=== PATIENT | female | born 1975 | race Caucasian/White ===

== ENCOUNTER → 2016-10-05 | Outpatient (CLI) | payer OTHER | LOC: RAD 07:27 | PROVIDERS: ATTEND Family Medicine | DX: R10.13 Epigastric pain (principal) | CPT/HCPCS: 76705 ==

== ENCOUNTER → 2016-11-02 | Outpatient (CLI) | payer OTHER ==
[~2016-11-02] MED LIST: DIPH25TA65; LRT10T; METH4TAB27 PO; NORG1TAB31
--- NOTE | 2016-11-02 09:55 | Diagnostic Imaging Report ---
INDICATION: Screening. COMPARISON: September 2015 and July 2014. The current digital study was evaluated with a Computer Aided Detection (CAD). FINDINGS: The CC view of the left breast shows an area of increased density posterolaterally near the chest wall. This is not definitely identified on the MLO view. This is a new finding since previous exam. Right breast appears normal. IMPRESSION: Question of developing soft tissue density posterolaterally in the left breast near the chest wall. This may be from different positioning of the breast, however, would recommend exaggerated left CC view. ACR BI-RADS Category 0: Incomplete. (Needs additional imaging evaluation). Result letter will be mailed to the patient. Note: At least 10% of breast cancer is not imaged by mammography. Dictated by: Dictated on workstation # [id number]
== END ==
LOC: RAD 07:25
PROVIDERS: ATTEND Family Medicine
DX: Z12.31 Encounter for screening mammogram for malignant neoplasm of breast (principal)

== ENCOUNTER → 2016-11-14 | Outpatient (CLI) | payer OTHER ==
--- NOTE | 2016-11-14 18:20 | Diagnostic Imaging Report ---
INDICATION: Followup left breast density. COMPARISON: 10/26/2015 and 11/02/2016. The current study was also evaluated with a Computer Aided Detection (CAD) system. FINDINGS: Multiple additional mammographic views of the left breast were obtained. The breast tissue is heterogeneously dense, which may lower the sensitivity of mammography. Previously described density in the lateral half of left breast resolves with spot compression and exaggerated CC views. No additional abnormality is seen on the true lateral view. IMPRESSION: Findings consistent with superimposed fibroglandular tissue of the left breast. ACR BI-RADS Category 1: Negative. Result letter will be mailed to the patient. Follow-up: Patient may return to yearly screening mammograms. NOTE: Keep in mind that about 10% of breast cancers will not be identified on mammography. Further evaluation of a palpable mass not seen on mammography should be based on clinical grounds. Dictated by: Dictated on workstation # [id number]
== END ==
LOC: RAD 13:01
PROVIDERS: ATTEND Family Medicine
DX: R92.2 Inconclusive mammogram (principal)

== ENCOUNTER 2016-11-28 07:02 | Day surgery (SDC) | payer OTHER ==
[~2016-11-28] VITALS: Ht 165.1 cm; Wt 63.2 kg
[~2016-11-28 07:02] MED LIST changes: +ALFENTANIL 1,000 MCG/2 ML AMP IV ONE; +LACTATED RINGERS 1,000 ML IV SCH; +NORE1TAB23 PO; +ONDANSETRON 2 MG/ML (Z0FRAN) 2 ML VIAL ONE; +PROPOFOL 20 ML IV ONE; +SODIUM CHLORIDE FLUSH 3 ML SYR IV PRN
[2016-11-28] MEDS ORDERED: KETOROLAC 60 MG/2 ML (TORADOL) VIAL IM ONE (07:06)
--- OUTSIDE RECORDS SUMMARY | 2016-11-28 07:07 | XMS REPORT | Continuity of Care Document ---
Author Author [facility] Address Unknown Phone Unavailable Allergies Active Description Code Type Severity Reaction Onset Reported/Identified Relationship to Patient Clinical Status Yes NKA NKA Drug Allergy N/A N/A Yes No Known Drug Allergies [id number] Drug Allergy Unknown N/ A 11/09/2012 Medications Problems Date Dx Coded Attending Type Code Diagnosis Diagnosed By 11/09/2012 Ot 784.2 SWELLING IN HEAD NECK 11/09/2012 Ot 995.1 ANGIONEUROTIC EDEMA 11/09/2012 Ot E932.2 ADV EFF OVARIAN HORMONES 06/26/2014 MANSOOR LAW, MARLON Anne Ot 530.81 06/26/2014 MANSOOR LAW, MARLON Anne Ot 787.02 06/26/2014 MANSOOR LAW, MARLON Anne Ot 789.02 06/26/2014 MANSOOR LAW, MARLON Anne Ot 793.3 06/26/2014 MANSOOR LAW, MARLON Anne Ot 793.7 09/20/2014 MARLON MAX MD Ot V76.12 01/18/2015 MANSOOR LAW, MARLON Anne Ot 530.81 01/18/2015 MANSOOR LAW, MARLON Anne Ot 787.02 01/18/2015 MANSOOR LAW, MARLON Anne Ot 789.02 01/18/2015 MANSOOR LAW, MARLON Anne Ot 793.3 01/18/2015 MANSOOR LAW, MARLON Anne Ot 793.7 01/18/2015 MANSOOR LAW, MARLON Anne Ot V76.12 10/05/2016 MANSOOR LAW, MARLON Anne Ot 530.81 ESOPHAGEAL REFLUX 10/05/2016 MANSOOR LAW, MARLON Anne Ot 787.02 NAUSEA ALONE 10/05/2016 MANSOOR LAW, MARLON Anne Ot 789.02 ABDOMINAL PAIN, LEFT UPPER QUADRANT 10/05/2016 MANSOOR LAW, MARLON Anne Ot 793.3 NOSP (ABN) FINDINGS ON RADIOLOGICAL OT 10/05/2016 MARLON MAX MD Ot 793.7 NOSP (ABN) FINDINGS ON RADIOLOGICAL OT 10/05/2016 MARLON MAX MD Ot V76.12 OTH SCREEN MAMMO-MALIGN NEOPLASM OF RUSSELL 10/05/2016 MARLON MAX MD Ot Z12.31 ENCNTR SCREEN MAMMOGRAM FOR MALIGNANT NE 10/30/2016 Herrera Giraldo R10.13 Epigastric Pain 11/01/2016 MARLON MAX MD Ot R10.13 EPIGASTRIC PAIN 11/01/2016 MARLON MAX MD Ot R10.13 EPIGASTRIC PAIN 11/01/2016 MARLON MAX MD Ot R10.13 EPIGASTRIC PAIN 11/06/2016 MARLON MAX MD, Ot Z12.31 ENCNTR SCREEN MAMMOGRAM FOR MALIGNANT NE 11/19/2016 MARLON MAX MD, Ot Z12.31 ENCNTR SCREEN MAMMOGRAM FOR MALIGNANT NE 11/21/2016 MARLON MAX MD Ot R92.2 INCONCLUSIVE MAMMOGRAM Procedures Results Encounters ACCT No. Visit Date/Time Discharge Status Pt. Type Provider Facility Loc./Unit Complaint [id number] 08/09/2014 14:20:00 2014 23:59:59 CLS Outpatient MANSOOR LAW [facility] RAD BASELINE SCREENING [id number] 08/03/2013 08:58:00 2013 23:59:59 CLS Outpatient MANSOOR LAW [facility] RAD LT UPPER ABD PAIN [id number] 11/14/2016 13:01:00 ACT Outpatient MANSOOR LAW [facility] RAD LEFT BREAST DENSITY---EXTRA VIEWS [id number] 11/02/2016 07:25:00 ACT Outpatient MANSOOR LAW [facility] RAD MAMMO SCREENING [id number] 10/05/2016 07:27:00 ACT Outpatient MANSOOR LAW [facility] RAD MID EPIGASTRIC PAIN [id number] 10/26/2015 13:56:00 ACT Outpatient MANSOOR LAW [facility] RAD SCREENING [id number] 11/09/2012 13:51:00 Document Registration
[2016-11-28 07:10] VITALS: BP 120/72
[2016-11-28] MEDS ORDERED: MIDAZOLAM 2 MG/2 ML (VERSED) VIAL ONE (07:23)
[2016-11-28] MEDS ORDERED: PROPOFOL 20 ML IV ONE (07:23)
[2016-11-28] MEDS ORDERED: LIDOCAINE 1% (XYLOCAINE) 20 ML VIAL ONE (07:24)
[2016-11-28] MEDS ORDERED: diphenhydrAMINE 50 MG/ML INJ (BENADRYL) ONE (08:07)
[2016-11-28] MEDS ORDERED: HYDROcodone/APAP 5 MG/325 MG (NORCO) TAB PO PRN (08:50)
[2016-11-28 08:53] VITALS: BP 132/83
--- NOTE | 2016-11-28 09:00 | Discharge Instructions (E) ---
Discharge Instructions Instructions No restrictions at home. Call with severe fever, bleeding, and pain. Doctor's Appointment [address] Carbone Discharge Diet: Regular VALE CARBONE MD November 28, 2016 09:00
[2016-11-28 09:06] VITALS: BP 133/51
[2016-11-28 09:24] VITALS: BP 126/50
--- NOTE | 2016-11-28 09:24 | Operative Report (E) ---
Operative Report (E) 11/28/16 09:17 Pre-Operative Diagnosis: Undesired fertility Post-Operative Diagnosis: Same Procedure: Hysteroscopic sterilization with essure Surgeon: Yesica Interface Designer: None Anesthesia: MAC with local EBL: 5cc Findings: Severely scarred cervix with scarring and cervical stenosis. Normal cavity. 4 coils visible at both ostia. VALE CARBONE MD November 28, 2016 09:23
[2016-11-28 09:38] VITALS: BP 114/42
--- NOTE | 2016-11-28 10:34 | OPERATIVE REPORT ---
DATE OF OPERATION: 11/28/2016 PRE-OPERATIVE DIAGNOSIS: Undesired fertility POST-OPERATIVE DIAGNOSIS: Undesired fertility OPERATIVE PROCEDURE: Hysteroscopic sterilization with Essure SURGEON: Jose G Robert MD PRECIPITATE WASHER: None ANESTHESIA: MAC with local COMPLICATIONS: None ESTIMATED BLOOD LOSS: 5 mL SPECIMEN: None FINDINGS: Intraoperatively the patient was noted to have a severely scarred cervix from her previous sections with multiple trabeculations and scar pockets. There was also cervical stenosis. The endometrial cavity was normal. At the conclusion of the procedure, 4 coils were visible at both tubal ostia. DESCRIPTION OF PROCEDURE: After confirming the validity of the informed consent, the patient was transported to the operating suite where she was placed in a dorsal lithotomy position after MAC anesthesia was administered without event. The patient was sterilely prepped and draped in the usual fashion and her bladder was emptied with a straight catheter. The cervix was grasped with a single-tooth tenaculum and the paracervical block was placed with a total of 10 mL of 1% plain lidocaine infiltrated at the 4 and 8 o'clock positions of the cervicovaginal junction. The hysteroscope was primed and passed into the endocervix with the findings as noted above. The hysteroscope was removed and the uterine sound was used to locate the internal os and was dilated slightly with cervical dilators. The hysteroscope was again passed into the endocervix and through the internal os to the endometrial cavity with the findings as noted above. The Essure device was then inserted into the left tubal ostium, and deployed leaving 4 coils visible. The right tubal ostium was cannulated with the Essure device and deployed leaving 4 coils visible. The hysteroscope was removed. The cervix was released and found to be hemostatic. All needle, sponge, and instrument counts were correct x2. The patient tolerated the procedure well and was transferred to recovery in good condition.
== END 2016-11-28 09:50 | disposition home or self-care (01) ==
LOC: ASC 07:02
PROVIDERS: ATTEND Obstetrics & Gynecology
DX: Z30.2 Encounter for sterilization (principal); N88.2 Stricture and stenosis of cervix uteri
CPT/HCPCS: 58565; 81025; J1200; J1885; J2250; J2405; J7120